=== PATIENT | female | born 1935 | race Caucasian/White ===

== ENCOUNTER 2022-01-18 02:24 | Inpatient (IN) | payer MEDICARE, OTHER ==
[2022-01-18] VITALS (7 sets, daily range): BP systolic 100–152; BP diastolic 65–81
[~2022-01-18] VITALS: Ht 160 cm; Wt 33.6 kg
[2022-01-18] MEDS ORDERED: ONDANSETRON HCL/PF 4 MG/2 ML VIAL ONE (02:36)
--- NOTE | 2022-01-18 02:40 | NUR ---
TO ER BED 10. [id number] FROM HOME "UNABLE TO HOLD ANYTHING DOWN" +VOMITTING X1DAY. PT IS ALERT. RR EVEN AND NON LABORED. CONNECTED TO MONITOR. EMESIS BAG AND WARM BLANKETS PROVIDED. AWAITING MD CAMARENA
--- NOTE | 2022-01-18 02:47 | NUR ---
BLOOD COLLECTED AND SENT TO LAB
--- NOTE | 2022-01-18 02:47 | NUR ---
IV LINE ESTABLISHED, LAC20G
[2022-01-18] MEDS ORDERED: IV NS 0.9% 1,000 ML BAG IV ONE (03:00)
[2022-01-18] MEDS ORDERED: ONDANSETRON HCL/PF 4 MG/2 ML VIAL IVP ONE (03:00)
[2022-01-18 03:19] LABS: BASOPHILS % (AUTO) 0.3 % (0.0-2.0); EOSINOPHILS % (AUTO) 4.9 % (0.0-6.0); HEMATOCRIT 38 % (33-45); HEMOGLOBIN 12.6 g/dL (11.5-14.8); LYMPHOCYTES # (AUTO) 1.1 K/uL (0.8-4.8); LYMPHOCYTES % (AUTO) 12.3 % (20.0-44.0); MEAN CORPUSCULAR HGB CONC 33 g/dl (31.0-36.0); MEAN CORPUSCULAR VOLUME 87 fL (82-100); MONOCYTES # (AUTO) 0.7 K/uL (0.1-1.30); MONOCYTES % (AUTO) 7.4 % (2.0-12.0); NEUTROPHILS # (AUTO) 6.7 K/uL (1.8-8.9); NEUTROPHILS % (AUTO) 75.1 % (43.0-81.0); PLATELET COUNT (AUTO) 222 K/uL (150-450); RED BLOOD CELL COUNT(AUTO) 4.36 MIL/uL (4.0-5.2); WHITE BLOOD COUNT (AUTO) 8.9 K/uL (4.3-11.0)
[2022-01-18 03:35] LABS: CARBON DIOXIDE 19 mmol/L (21-32); CHLORIDE 101 mmol/L (98-107); CREATININE 2.3 mg/dL (0.6-1.3); GLUCOSE 124 mg/dL (74-106); POTASSIUM 5.7 mmol/L (3.5-5.1); SODIUM SERUM 134 mmol/L (136-145)
[2022-01-18 03:42] LABS: ALANINE AMINOTRANSFERASE 16 U/L (12-78); ALBUMIN 3.7 g/dL (3.4-5.0); ALKALINE PHOSPHATASE 94 U/L (46-116); ASPARTATE AMINOTRANSFERASE 19 U/L (15-37); BILIRUBIN,DIRECT 0.2 mg/dL (0.0-0.2); BILIRUBIN,TOTAL 0.6 mg/dL (0.2-1.0); LIPASE 345 U/L (73-393); TOTAL PROTEIN, SERUM 7.7 g/dL (6.4-8.2)
[2022-01-18 03:44] LABS: UREA NITROGEN, BLOOD 122 mg/dL (7-18)
--- NOTE | 2022-01-18 04:14 | NUR ---
URINE COLLECTED AND SENT TO LAB
[2022-01-18] MEDS ORDERED: Calcium Gluconate 0.465 MEQ/ML VIAL IV ONE (04:27)
[2022-01-18] MEDS ORDERED: ASPIRIN 325 MG TABLET ONE (04:28)
[2022-01-18] MEDS ORDERED: INSULIN REGULAR, HUMAN 100 UNIT/ML 10 ML VIAL ONE (04:28)
[2022-01-18] MEDS ORDERED: DEXTROSE 50%-WATER 50 ML DISP.SYRIN ONE (04:28)
[2022-01-18] MEDS ORDERED: INSULIN REGULAR, HUMAN 100 UNIT/ML 10 ML VIAL IV ONE (04:30)
[2022-01-18] MEDS ORDERED: DEXTROSE 50%-WATER 50 ML DISP.SYRIN IVP ONE (04:30)
[2022-01-18] MEDS ORDERED: IV NS 0.9% 50 ML IV ONE (04:30)
[2022-01-18] MEDS ORDERED: ASPIRIN 81 MG TAB.CHEW PO ONE (04:30)
[2022-01-18] MEDS ORDERED: Calcium Gluconate 1GM/10ML 4.65 MEQ in IV NS 0.9% 100 ML IV ONE (04:30)
[2022-01-18 04:43] LABS: BILIRUBIN,URINE NEGATIVE (NEGATIVE); COLOR,URINE YELLOW (YELLOW); LEUKOCYTE ESTERASE ,URINE LARGE (NEGATIVE); NITRITE, URINE NEGATIVE (NEGATIVE); PH,URINE 5.5 (5.0-8.0); PROTEIN,URINE NEGATIVE (NEGATIVE); UGLUCOSE NEGATIVE (NEGATIVE); UROBILINOGEN,URINE 0.2 EU/dL (0.2)
[2022-01-18 04:46] LABS: BACTERIA,URINE Rare /HPF (None Seen); RBC,URINE 0-2 /HPF (0-2); SQUAMOUS EPITHELIAL CELL,UR Few /HPF (None Seen)
--- NOTE | 2022-01-18 05:22 | NUR ---
PT RESTING COMFORTABLY IN BED, PROVIDED WARM BLANKETS FOR COMFORT
[2022-01-18] MEDS ORDERED: MORPHINE SULFATE INJ 2 MG/ML DISP.SYRIN IV PRN ×2 (06:00→09:30)
[2022-01-18] MEDS ORDERED: hydrALAZINE HCL IV 20 MG VIAL IV PRN (06:00)
--- NOTE | 2022-01-18 06:39 | NUR ---
324-1 AFTER CHANGE OF SHIFT PER SUP.
[2022-01-18] MEDS ORDERED: CEFEPIME 1 GM in IV D5W 50 ML IV ONE (07:00)
[2022-01-18] MEDS: IV NS 0.9% 1,000 ML IV SCH ×2 (07:00→20:28)
[2022-01-18] MEDS: CEFEPIME 2 GM in IV D5W 100 ML IV SCH (07:09)
--- NOTE | 2022-01-18 07:36 | NUR ---
REPORT GIVEN TO SIENNA AVITIA FOR WAI
--- NOTE | 2022-01-18 08:10 | NUR ---
TELEMETRY ADMISSION RN NOTES: ADMITTED A 86YO FEMALE IN MED SURG UNIT VIA GURNEY, ACCOMPANIED BY TRANSPORTER AND RN. PATIENT AWAKE AND VERY CONFUSED, YORUBA SPEAKING AND ABLE TO VERBALIZED NEEDS, NEEDS FREQUENT REORIENTATION. DENIES ANY PAIN AT THIS TIME. NO SOB OR CARDIAC DISTRESS NOTES. LUNGS CLEARED UPON AUSCULTATION. VS TAKEN 135/65,HR 79, RR18 TEMP 97.5F O2 SAT 94%. ON BUSHEL GIRL WITH CURRENT READING SINUS RHYTHM 73BPM.BODY ASSESSMENT DONE, NOTED WITH SCATTERED SKIN DISCOLORATIONS FROM BILATERAL ARMS FROM NEEDLES PRICK, NOTED WITH WOUND ON RIGHT EAR LOBE, BILATERAL HEEL REDNESS NOTED. PHOTOS TAKEN AND FILED TO PATIENT'S CHART. IV ACCESS ON LEFT AC G#20 PATENT AND INTACT, RUNNING NS 1L @75ML/HR. BELONGINGS: WHITE T-SHIRT LEFT IN PT'S BEDSIDE. ORIENTED PT TO UNIT, STAFFS. PROVIDED JUICE AND JELLO, PT ON CLEAR LIQUID DIET. SAFETY PRECAUTIONS INITIATED: BED LOCKED AND IN LOWEST POSITION, SIDE RAILS UP X 2. CALL LIGHT IN EASY REACH FOR HELP. WILL MONITOR PATIENT ACCORDINGLY.
--- NOTE | 2022-01-18 08:13 | NUR ---
TRANSFERRED TO BED 324 IN STABLE CONDITION
[2022-01-18] MEDS ORDERED: MAGN400T26 PO (08:28)
[2022-01-18] MEDS ORDERED: DONE5TAB34 PO (08:28)
[2022-01-18] MEDS ORDERED: CHOL200010 PO (08:28)
[2022-01-18] MEDS ORDERED: ESCI5TAB PO (08:28)
[2022-01-18] MEDS ORDERED: AMLO-555 PO (08:28)
[2022-01-18] MEDS ORDERED: CYAN-51 PO (08:28)
[2022-01-18] MEDS: HEPARIN SODIUM, PORCINE 5000 UNITS/1 ML VIAL SQ SCH ×2 (08:50→21:01)
[2022-01-18] MEDS ORDERED: ACETAMINOPHEN 325 MG TABLET PO PRN (09:30)
[2022-01-18] MEDS ORDERED: MAGNESIUM HYDROXIDE 30 ML UDC PO PRN (09:30)
[2022-01-18] MEDS ORDERED: MAG HYDROX/AL HYDROX/SIMETH 30 ML UDC PO PRN (09:30)
[2022-01-18] MEDS ORDERED: Z GUARD REMEDY 4 OZ OINT TP PRN (09:30)
[2022-01-18] MEDS ORDERED: ONDANSETRON HCL/PF 4 MG/2 ML VIAL IVP PRN (09:30)
--- NOTE | 2022-01-18 10:40 | NUR ---
RN NOTES: REPORTED CRITICAL LAB RESULT TO DR BOGGS. TROP 150, WAITING FOR RESPONSE.
--- NOTE | 2022-01-18 11:00 | NUR ---
RN NOTES: DR BOGGS STATED "GIVE ZOFRAN FOR NOW AND MONITOR PT".
[2022-01-18] MEDS: ONDANSETRON HCL/PF 4 MG/2 ML VIAL IVP PRN (11:01)
--- NOTE | 2022-01-18 11:40 | NUR ---
RN NOTES: NAUSEA AND VOMITING 1X , GAVE ZOFRAN IV @1101, PT VERBALIZED RELIEF. INFORMED DR BOGGS THAT PT IS COMPLAINING HEAD SPINNING, WAITING FOR RESPONSE.
--- NOTE | 2022-01-18 13:03 | NUR ---
RN NOTES: PT'S SON FEED THE PATIENT. RELIEVED NAUSEA AND PT IS CURRENTLY SLEEPING, COMFORTABLE.
--- NOTE | 2022-01-18 13:31 | NUR ---
RN NOTES: RECEIVED ORDER FROM DR ROBERT. PT'S KLEVEL 5.7, ORDERED KAYEXELATE 15MG PO BID, ORDERS NOTED AND CARRIED OUT.
[2022-01-18] MEDS: SODIUM POLYSTYRENE SULFONATE 15 G/60 ML BOTTLE PO SCH ×2 (15:35→20:59)
--- NOTE | 2022-01-18 18:17 | NUR ---
RN NOTES: AILYN(PT'S DAUGHTER) REQUESTED IF HER MOTHER CAN HAVE HER EYE DROPS AZELASTINE INSTILL IN BOTH EYES BID. INFORMED DR BOGGS AND STATED OKAY TO HAVE THE EYE DROPS. AILYN WILL DROP OFF EYEDROPS, PER PHARMACIST BRING MEDS BEFORE 7PM SO SHE CAN PRINT BAR CODE. WILL ENDORSE.
--- NOTE | 2022-01-18 18:55 | NUR ---
SOCIAL SCIENCE RESEARCH ASSISTANT CLOSING NOTES: PATIENT ALERT AN ORIENTED X 3. AMENIAN SPEAKING BUT ABLE TO UNDERSTAND AND SPEAK MOZAMBICAN. DENIES ANY PAIN AT THIS TIME, NO SOB OR CARDIAC DISTRESS NOTED. ON HINGING MACHINE OPERATOR WITH CURRENT READING OF NSR #77 BPM. IV ACCESS ON LAC G20 PATENT, INTACT AND INFUSING NS @ 75ML/HR.SAFETY PRECAUTIONS MAINTAINED: BED LOCKED AND IN LOWEST POSITION, SIDERAILS UP X 2. CALL LIGHT IN EASY REACH FOR HELP. WILL MONITOR PT ACCORDINGLY. ENDORSED TO SHOP ASSISTANT NURSE FOR CONTINUITY OF CARE.
--- NOTE | 2022-01-18 19:40 | NUR ---
DULSER OPENING NOTE RECEIVED PATIENT IN BED; AWAKE, ALERT AND ORIENTED X 3. BREATHING EVEN AND NONLABORED. ON ROOM AIR; TOLERATING WELL. NOT IN ANY FORM OF RESPIRATORY DISTRESS. DENIES ANY PAIN OR DISCOMFORT AT THIS TIME. WITH IV ACCESS ON LEFT ANTECUBITAL 20g: PATENT AND INTACT INFUSING WITH NS 1L RUNNING @ 75 ML/HR; FLUSHES WELL. ON TELEMETRY MONITORING WITH CURRENT READING OF SINUS RHYTHM HR-76 BPM. ABLE TO MAKE NEEDS KNOWN. SAFETY MEASURES IMPLEMENTED: CALL LIGHT AND TABLE WITHIN REACH, SIDE RAILS UP X2, BED IN LOWEST LOCKED POSITION. WILL CONTINUE TO MONITOR.
[2022-01-18] MEDS ORDERED: SODIUM POLYSTYRENE SULFONATE 15 G/60 ML BOTTLE ONE (20:54)
[2022-01-19 00:08] VITALS: BP 117/57
[2022-01-19] MEDS: CEFEPIME 2 GM in IV D5W 100 ML IV SCH (06:43)
--- NOTE | 2022-01-19 06:57 | NUR ---
PATIENTS TRANSPORTER CLOSING NOTE PATIENT IN BED; AWAKE, A/O X 3. BREATHING EVEN AND NONLABORED. ON ROOM AIR; TOLERATING WELL. IN NO APPARENT DISTRESS. NO C/O ANY PAIN OR DISCOMFORT AT THIS TIME. WITH IV ACCESS ON LEFT ANTECUBITAL 20g: PATENT AND INTACT INFUSING WITH NS 1L RUNNING @ 75 ML/HR; FLUSHES WELL. ON TELEMETRY MONITORING WITH CURRENT READING OF SINUS RHYTHM HR-71 BPM. ABLE TO MAKE NEEDS KNOWN. SAFETY MEASURES MAINTAINED: CALL LIGHT AND TABLE WITHIN REACH, SIDE RAILS UP X2, BED IN LOWEST LOCKED POSITION. ENDORSED TO COLT AVITIA FOR WAI.
[2022-01-19 07:36] LABS: ALANINE AMINOTRANSFERASE 14 U/L (12-78); ALBUMIN 2.8 g/dL (3.4-5.0); ALKALINE PHOSPHATASE 69 U/L (46-116); ASPARTATE AMINOTRANSFERASE 13 U/L (15-37); BILIRUBIN,TOTAL 0.4 mg/dL (0.2-1.0); CALCIUM, SERUM 9.4 mg/dL (8.5-10.1); CARBON DIOXIDE 21 mmol/L (21-32); CHLORIDE 113 mmol/L (98-107); CREATININE 1.6 mg/dL (0.6-1.3); GLUCOSE 92 mg/dL (74-106); MAGNESIUM 2.2 mg/dL (1.8-2.4); PHOSPHORUS 3.4 mg/dL (2.5-4.9); POTASSIUM 4.5 mmol/L (3.5-5.1); SODIUM SERUM 143 mmol/L (136-145); TOTAL PROTEIN, SERUM 5.9 g/dL (6.4-8.2)
[2022-01-19 07:40] LABS: UREA NITROGEN, BLOOD 83 mg/dL (7-18)
[2022-01-19 07:41] LABS: BASOPHILS % (AUTO) 0.7 % (0.0-2.0); EOSINOPHILS % (AUTO) 6.6 % (0.0-6.0); HEMATOCRIT 31 % (33-45); HEMOGLOBIN 10.1 g/dL (11.5-14.8); LYMPHOCYTES # (AUTO) 0.6 K/uL (0.8-4.8); LYMPHOCYTES % (AUTO) 12.7 % (20.0-44.0); MEAN CORPUSCULAR HGB CONC 32 g/dl (31.0-36.0); MEAN CORPUSCULAR VOLUME 89 fL (82-100); MONOCYTES # (AUTO) 0.4 K/uL (0.1-1.30); MONOCYTES % (AUTO) 8.2 % (2.0-12.0); NEUTROPHILS # (AUTO) 3.6 K/uL (1.8-8.9); NEUTROPHILS % (AUTO) 71.8 % (43.0-81.0); PLATELET COUNT (AUTO) 128 K/uL (150-450); RED BLOOD CELL COUNT(AUTO) 3.53 MIL/uL (4.0-5.2); WHITE BLOOD COUNT (AUTO) 5.1 K/uL (4.3-11.0)
[2022-01-19] MEDS: HEPARIN SODIUM, PORCINE 5000 UNITS/1 ML VIAL SQ SCH ×2 (08:56→21:41)
[2022-01-19] MEDS: AZELASTINE 0.05% EACHEYE SCH ×2 (08:57→16:25)
[2022-01-19] MEDS: SODIUM POLYSTYRENE SULFONATE 15 G/60 ML BOTTLE PO SCH ×2 (08:57→21:00)
[2022-01-19] MEDS: EYE EACHEYE SCH ×2 (08:57→16:25)
[2022-01-19 09:09] LABS: THYROID STIMULATING HORMONE 0.876 uIU/mL (0.358-3.74)
--- NOTE | 2022-01-19 10:08 | NUR ---
WOUND CARE CONSULT: PT PRESENTS WITH RT EAR WOUND/LESION WHICH IS TENDER, VERY BONY SACRAL AREA WITH SACRAL DIMPLE AND BILATERAL HEEL INTACT DEEP TISSUE INJURIES, ALL PRESENT ON ADMISSION. SURGICAL CONSULT CALLED TO DR KHAN. DISCUSSED SKIN PROTECTION WITH NURSING STAFF. PT IS CACHECTIC. DIETARY CONSULT IN PLACE. IN AGREEMENT WITH PLAN OF CARE. Addendum: 01/19/22 at 1009 by KASH GARNER WNDNU Amended: Links added.
[2022-01-19] MEDS: ACETAMINOPHEN 325 MG TABLET PO PRN (11:48)
[2022-01-19] MEDS: ENSURE CLEAR 237 ML LIQUID (MIX BERRY) PO SCH ×2 (13:00→17:00)
[2022-01-19] MEDS: MAGNESIUM OXIDE 400 MG TABLET PO SCH (16:24)
--- NOTE | 2022-01-19 18:30 | NUR ---
LOCOMOTIVE MECHANIC CLOSING NOTE PATIENT RECEIVED LAYING IN BED AND AWAKE. NO S/SX OF RESPIRATORY DISTRESS OBSERVED OR REPORTED. IV ACCESS TO LAC REMAINS IN TACT AND PATENT. PATIENT REMAINS INCONTINENT WITH 1 BOWEL MOVEMENT MADE ON SHIFT. BAND-AID PLACED ON RIGHT EAR WOUND FOR PROTECTION AND MEPILEX PLACED ON BILATERAL HEELS FOR PREVENTION. PATIENT C/O MINOR HEADACHE @ 1148. RECEIVED TYLENOL; MEDICATION EFFECTIVE. PATIENT REMAINS ON CLEAR LIQUID DIET, HOWEVER UPDATED TO LACTOSE FREE CLEAR LIQUID DIET. TOLERATED WELL. PATIENT SON AND DAUGHTER AT BEDSIDE THROUGHOUT THE DAY. SAFETY MEASURES IN PLACE WITH BED LOW AND LOCKED. CALL LIGHT WITHIN REACH AND HOB REMAINS ELEVATED WILL. CONT TO MONITOR.
--- NOTE | 2022-01-19 19:30 | NUR ---
SHIP LINER OPENING NOTE RECEIVED PT AWAKE IN BED. A/O X3, FIJIAN SPEAKING, ABLE TO MAKE NEEDS KNOWN. PT STABLE ON ROOM AIR. NO SOB OR S/S OF RESPIRATORY DISTRESS. ON EXTERNAL CQ DEVELOPER READING SR 76 BPM. IV ACCESS LAC 20G RUNNING NS @ 75 ML/HR, INTACT AND PATENT. SAFETY PRECAUTIONS IN PLACE. BED IN LOWEST LOCKED POSITION, HOB ELEVATED, SIDE RAILS UP X3, AND CALL LIGHT AND TABLE WITHIN REACH. ALL NEEDS MET AT THIS TIME.
[2022-01-19 20:00] VITALS: BP 115/73
[2022-01-19] MEDS: THERAHONEY GEL 1.5 OZ TUBE TP SCH (20:01)
--- NOTE | 2022-01-19 20:55 | NUR ---
RN NOTE SPOKE WITH DAUGHTER (JEAN-PIERRE ROBERTSON, REFUSING TO GIVE CONSENT FOR SERIAL DEBRIDEMENT OF THE EAR AT THIS TIME. REQUESTED CALL BACK FROM THE MD FOR FURTHER EXPLANATION OF REASONING FOR THE PROCEDURE. STATED THAT HER MOTHER "CUT HER EAR WITH HER MEDALION THAT SHE SLEEPS WITH" AND THAT THE WOUND ON HER EAR IS A CUT AND NOT A PRESSURE WOUND. SHE DOES NOT WISH TO PUT HER MOTHER THROUGH A PROCEDURE IF IT IS NOT NEEDED. UNABLE TO OBTAIN A CONSENT AT THIS TIME. CHARGE NURSE JAYRO GONZALEZ.
[2022-01-20] VITALS: BP 147/79
[2022-01-20] MEDS: ACETAMINOPHEN 325 MG TABLET PO PRN ×3 (05:32→23:47)
--- NOTE | 2022-01-20 05:42 | NUR ---
RN NOTE PT COMPLAINED OF HEADACHE. ADMINISTERED TYLENOL 650 MG FOR HEADACHE ORDERED. MADE COMFORTABLE IN BED. ALL NEEDS MET AT THIS TIME.
[2022-01-20] MEDS: ONDANSETRON HCL/PF 4 MG/2 ML VIAL IVP PRN (06:17)
[2022-01-20] MEDS: CEFEPIME 2 GM in IV D5W 100 ML IV SCH (06:17)
--- NOTE | 2022-01-20 06:17 | NUR ---
RN NOTE PT COMPLAINING OF NAUSEA. ADMINISTERED ZOFRAN 4 MG FOR NAUSEA ORDERED. ALL NEEDS MET AT THIS TIME.
--- NOTE | 2022-01-20 06:33 | NUR ---
STOVE REFINISHER CLOSING NOTE PT AWAKE IN BED. A/O X3, ARABIC SPEAKING, ABLE TO MAKE NEEDS KNOWN. PT STABLE ON ROOM AIR. NO SOB OR S/S OF RESPIRATORY DISTRESS. ON EXTERNAL UNITIZER READING SR 60 BPM. IV ACCESS LAC 20G RUNNING NS @ 75 ML/HR, INTACT AND PATENT. ALL DUE MEDS GIVEN ORDERED. TURNED AND REPOSITIONED Q2H. KEPT CLEAN AND DRY. SAFETY PRECAUTIONS IN PLACE AT ALL TIMES. BED IN LOWEST LOCKED POSITION, HOB ELEVATED, SIDE RAILS UP X3, AND CALL LIGHT AND TABLE WITHIN REACH. ALL NEEDS MET AT THIS TIME AND WILL ENDORSE TO ONCOMING NURSE FOR WAI.
[2022-01-20 06:35] LABS: BASOPHILS % (AUTO) 0.4 % (0.0-2.0); EOSINOPHILS % (AUTO) 6.7 % (0.0-6.0); HEMATOCRIT 33 % (33-45); HEMOGLOBIN 10.6 g/dL (11.5-14.8); LYMPHOCYTES # (AUTO) 0.7 K/uL (0.8-4.8); LYMPHOCYTES % (AUTO) 16.9 % (20.0-44.0); MEAN CORPUSCULAR HGB CONC 33 g/dl (31.0-36.0); MEAN CORPUSCULAR VOLUME 88 fL (82-100); MONOCYTES # (AUTO) 0.3 K/uL (0.1-1.30); MONOCYTES % (AUTO) 8.5 % (2.0-12.0); NEUTROPHILS # (AUTO) 2.8 K/uL (1.8-8.9); NEUTROPHILS % (AUTO) 67.5 % (43.0-81.0); PLATELET COUNT (AUTO) 129 K/uL (150-450); WHITE BLOOD COUNT (AUTO) 4.1 K/uL (4.3-11.0)
[2022-01-20 06:49] LABS: ALANINE AMINOTRANSFERASE 12 U/L (12-78); ALBUMIN 2.8 g/dL (3.4-5.0); ALKALINE PHOSPHATASE 70 U/L (46-116); ASPARTATE AMINOTRANSFERASE 13 U/L (15-37); BILIRUBIN,TOTAL 0.4 mg/dL (0.2-1.0); CALCIUM, SERUM 9.9 mg/dL (8.5-10.1); CARBON DIOXIDE 19 mmol/L (21-32); CHLORIDE 112 mmol/L (98-107); CREATININE 1.2 mg/dL (0.6-1.3); GLUCOSE 106 mg/dL (74-106); MAGNESIUM 1.9 mg/dL (1.8-2.4); POTASSIUM 3.8 mmol/L (3.5-5.1); SODIUM SERUM 142 mmol/L (136-145); TOTAL PROTEIN, SERUM 6.1 g/dL (6.4-8.2); UREA NITROGEN, BLOOD 64 mg/dL (7-18)
--- NOTE | 2022-01-20 07:30 | NUR ---
DAYCARE PROVIDER OPENING NOTE RECEIVED PT AWAKE IN BED. A/O X3, NORTH KOREAN SPEAKING, ABLE TO MAKE NEEDS KNOWN. PT STABLE ON ROOM AIR. NO SOB OR S/S OF RESPIRATORY DISTRESS. ON EXTERNAL GASOLINE ATTENDANT READING SR 62 BPM. IV ACCESS LAC 20G RUNNING NS @ 75 ML/HR, INTACT AND PATENT. SAFETY PRECAUTIONS IN PLACE. BED IN LOWEST LOCKED POSITION, HOB ELEVATED, SIDE RAILS UP X3, AND CALL LIGHT AND TABLE WITHIN REACH. WILL CONTINUE TO MONITOR.
[2022-01-20 08:00] VITALS: BP 147/67
[2022-01-20] MEDS ORDERED: Medication Not On Formulary EA (Escitalopram Oxalate (Lexapro) 5 MG) PO SCH (09:00)
[2022-01-20] MEDS: SODIUM POLYSTYRENE SULFONATE 15 G/60 ML BOTTLE PO SCH (09:36)
[2022-01-20] MEDS: AZELASTINE 0.05% EACHEYE SCH ×2 (09:36→17:21)
[2022-01-20] MEDS: THERAHONEY GEL 1.5 OZ TUBE TP SCH (09:36)
[2022-01-20] MEDS: EYE EACHEYE SCH ×2 (09:36→17:21)
[2022-01-20] MEDS: DONEPEZIL 5 MG TABLET PO SCH (09:37)
[2022-01-20] MEDS: ESCITALOPRAM OXALATE (10 MG) 10 MG TABLET PO SCH (09:37)
[2022-01-20] MEDS: MAGNESIUM OXIDE 400 MG TABLET PO SCH ×2 (09:37→17:21)
[2022-01-20] MEDS: ENSURE CLEAR 237 ML LIQUID (MIX BERRY) PO SCH ×3 (09:38→17:22)
[2022-01-20] MEDS: HEPARIN SODIUM, PORCINE 5000 UNITS/1 ML VIAL SQ SCH ×2 (09:44→21:12)
[2022-01-20] MEDS ORDERED: ONDANSETRON HCL/PF 4 MG/2 ML VIAL IV PRN (11:30)
[2022-01-20 12:00] VITALS: BP 142/64
[2022-01-20] MEDS: IV NS 0.9% 1,000 ML IV PRN (14:54)
[2022-01-20 16:00] VITALS: BP 157/67
--- NOTE | 2022-01-20 18:43 | NUR ---
FUEL CELL TECHNICIAN CLOSING NOTE PT AWAKE IN BED. A/O X3, YAKUT SPEAKING, ABLE TO MAKE NEEDS KNOWN. PT STABLE ON ROOM AIR. NO SOB OR S/S OF RESPIRATORY DISTRESS. ON EXTERNAL HOSIERY MATER READING SR . IV ACCESS LAC 20G RUNNING NS @ 75 ML/HR, INTACT AND PATENT. ALL DUE MEDS GIVEN ORDERED. ALL SAFETY PRECAUTIONS IN PLACE. BED IN LOWEST LOCKED POSITION, HOB ELEVATED, SIDE RAILS UP X3, AND CALL LIGHT AND TABLE WITHIN REACH. WILL ENDORSE FOR WAI.
--- NOTE | 2022-01-20 19:30 | NUR ---
FARMER CASH GRAIN NOTES SR-60 ON TELE MONITOR.RECEIVED ON BED,A/O X3,SPEAK BELARUSIAN,BREATHING REGULAR,NOT IN ANY FORM OF RESPIRATORY DISTRESS,PRESENT IVF NS AT 75ML/HR RATE INFUSING WELL ON LEFT AC SALINE LOCK VIA IV PUMP.INCONTINENT,ON DIAPER,WET THIS TIME,INFORMED RETAIL BANKER TO CHANGE DIAPER ONCE HE GETS IN THE ROOM.NOTED DRESSING INTACT AND DRY ON RIGHT EAR SKIN IRRITATION,.WILL CONTINUE TO MONITOR STATUS.CALL LIGHT IN REACH,NEEDS ANTICIPATED.
--- NOTE | 2022-01-20 19:35 | NUR ---
TRUCK MECHANIC NOTES PRINT GRAPHIC DESIGNER LUIS AT BEDSIDE CHECKING VITAL SIGNS.DIAPER CHANGE THIS TIME.
[2022-01-20 20:00] VITALS: BP 135/69
[2022-01-21] MEDS: IV NS 0.9% 1,000 ML IV PRN (05:41)
[2022-01-21] MEDS: CEFEPIME 2 GM in IV D5W 100 ML IV SCH (06:24)
[2022-01-21 06:47] LABS: BASOPHILS % (AUTO) 0.7 % (0.0-2.0); EOSINOPHILS % (AUTO) 6.4 % (0.0-6.0); HEMATOCRIT 31 % (33-45); LYMPHOCYTES # (AUTO) 0.8 K/uL (0.8-4.8); MEAN CORPUSCULAR HGB CONC 33 g/dl (31.0-36.0); MEAN CORPUSCULAR VOLUME 88 fL (82-100); MONOCYTES # (AUTO) 0.3 K/uL (0.1-1.30); MONOCYTES % (AUTO) 7.7 % (2.0-12.0); NEUTROPHILS # (AUTO) 3.1 K/uL (1.8-8.9); NEUTROPHILS % (AUTO) 67.2 % (43.0-81.0); PLATELET COUNT (AUTO) 126 K/uL (150-450); RED BLOOD CELL COUNT(AUTO) 3.48 MIL/uL (4.0-5.2); WHITE BLOOD COUNT (AUTO) 4.5 K/uL (4.3-11.0)
--- NOTE | 2022-01-21 06:58 | NUR ---
PRINCIPAL LAW CLERK NOTES SLEEP WELL AT NIGHT,ALL DUE MEDS ADMINISTERED,REPOSITIONED PER PROTOCOL,NO DISTRESS.
--- NOTE | 2022-01-21 07:42 | NUR ---
RN OPENING NOTES RECEIVED PATIENT IN BED, AWAKE. ALERT/ORIENTED X3. PATIENT STABLE ON ROOM AIR, NO SIGNS OF SOB OR DISTRESS. HAS IV ACCESS ON LFA 22G WITH NS AT 75ML/HR. IV PATENT AND INTACT. SKIN INTACT AND CLEAR. SAFETY MEASURES IN PLACE: BED LOCKED, LOWEST POSITION, CALL LIGHT WITHIN REACH, SIDE RIALS UP X2. WILL CONTINUE TO MONITOR
[2022-01-21 08:00] VITALS: BP 194/81
[2022-01-21 08:18] LABS: ALANINE AMINOTRANSFERASE 11 U/L (12-78); ALBUMIN 2.4 g/dL (3.4-5.0); ALKALINE PHOSPHATASE 62 U/L (46-116); ASPARTATE AMINOTRANSFERASE 10 U/L (15-37); BILIRUBIN,TOTAL 0.4 mg/dL (0.2-1.0); CALCIUM, SERUM 9.2 mg/dL (8.5-10.1); CARBON DIOXIDE 23 mmol/L (21-32); CHLORIDE 113 mmol/L (98-107); CREATININE 1.1 mg/dL (0.6-1.3); GLUCOSE 100 mg/dL (74-106); MAGNESIUM 1.6 mg/dL (1.8-2.4); PHOSPHORUS 2.7 mg/dL (2.5-4.9); POTASSIUM 3.1 mmol/L (3.5-5.1); SODIUM SERUM 143 mmol/L (136-145); TOTAL PROTEIN, SERUM 5.4 g/dL (6.4-8.2); UREA NITROGEN, BLOOD 42 mg/dL (7-18)
[2022-01-21] MEDS ORDERED: AMLO-212 PO (08:49)
[2022-01-21] MEDS: MAGNESIUM OXIDE 400 MG TABLET PO SCH ×2 (08:59→17:52)
[2022-01-21] MEDS: ESCITALOPRAM OXALATE (10 MG) 10 MG TABLET PO SCH (08:59)
[2022-01-21] MEDS: DONEPEZIL 5 MG TABLET PO SCH (08:59)
[2022-01-21] MEDS: HEPARIN SODIUM, PORCINE 5000 UNITS/1 ML VIAL SQ SCH (09:03)
[2022-01-21] MEDS: ENSURE CLEAR 237 ML LIQUID (MIX BERRY) PO SCH ×3 (09:04→17:52)
[2022-01-21] MEDS: AZELASTINE 0.05% EACHEYE SCH ×2 (09:32→17:00)
[2022-01-21] MEDS: THERAHONEY GEL 1.5 OZ TUBE TP SCH (09:32)
[2022-01-21] MEDS: EYE EACHEYE SCH ×2 (09:32→17:00)
[2022-01-21] MEDS: Magnesium 1GM/D5W 100ML PREMIX 100 ML IV SCH ×2 (11:28→12:29)
[2022-01-21] MEDS: ACETAMINOPHEN 325 MG TABLET PO PRN (11:31)
[2022-01-21 12:00] VITALS: BP 173/88
[2022-01-21] MEDS ORDERED: POTASSIUM CHLORIDE 20 MEQ POWDER PACKET PO SCH ×2 (12:00→15:00)
[2022-01-21 16:00] VITALS: BP 176/84
[2022-01-21 16:23] VITALS: BP 176/84
--- NOTE | 2022-01-21 18:31 | NUR ---
RN CLOSING NOTE PT [place] VITAL SIGNS STABLE. ALERT/ORIENTED X3, AFTER CARE REVIEWED WITH FAMILY AND UNDERSTOOD. IV HEP LOCK REMOVED, ID BANDS REMOVED AND ESCORTED BY HOSPITAL STAFF.
== END 2022-01-21 18:43 | disposition hospice, home (50) | DRG 391 ==
LOC: ER 02:26 → TRANSITION 06:11 → TELE 07:27
PROVIDERS: ADMIT Internal Medicine; ATTEND Internal Medicine
DX: A08.4 Viral intestinal infection, unspecified (principal); E43 Unspecified severe protein-calorie malnutrition; L89.894 Pressure ulcer of other site, stage 4; G93.41 Metabolic encephalopathy; I21.A1 Myocardial infarction type 2; N17.0 Acute kidney failure with tubular necrosis; N39.0 Urinary tract infection, site not specified; E87.1 Hypo-osmolality and hyponatremia; Z68.1 Body mass index [BMI] 19.9 or less, adult; E87.5 Hyperkalemia; I48.91 Unspecified atrial fibrillation; E86.0 Dehydration; E83.42 Hypomagnesemia; E87.6 Hypokalemia; E88.09 Other disorders of plasma-protein metabolism, not elsewhere classified; I10 Essential (primary) hypertension; F03.90 Unspecified dementia, unspecified severity, without behavioral disturbance, psychotic disturbance, mood disturbance, and anxiety; K52.9 Noninfective gastroenteritis and colitis, unspecified; N28.1 Cyst of kidney, acquired; Z91.81 History of falling
CPT/HCPCS: 36415; 71045-TC; 80048-TC; 80053-TC; 80061-TC; 80076-TC; 81001; 82728-TC; 83540-TC; 83605-TC; 83690-TC; 83735-TC; 84100-TC; 84439-TC; 84443-TC; 84484-TC; 85025-TC; 87081-TC; 87086-TC; 93307-TC; 97112-TC; 97116-TC; 97530-TC; C9803; G0378; J0360; J0610; J0692; J1644; J1815; J2405; J3475; J7030; J7060